=== PATIENT | male | born 1975 | race Hispanic/Latino ===

== ENCOUNTER 2018-11-14 06:33 | Day surgery (SDC) | payer OTHER ==
[2018-11-13 14:49] VITALS: BP 137/72
[2018-11-13 14:49] LABS: BASOPHILS % (AUTO) 0.9 % (0.0-5.0); EOSINOPHILS % (AUTO) 0.4 % (0.0-8.0); HEMATOCRIT 43.1 % (42-54); LYMPHOCYTES % (AUTO) 17.1 % (21.0-51.0); MEAN CORPUSCULAR HEMOGLOBIN 28.2 pg (27.0-33.0); MEAN CORPUSCULAR HGB CONC 33.5 g/dL (32.0-36.0); MEAN CORPUSCULAR VOLUME 84.1 fL (79-99); MONOCYTES % (AUTO) 7.5 % (3.0-13.0); NEUTROPHILS % (AUTO) 74.1 % (40.0-77.0); PLATELET COUNT (AUTO) 295 K/uL (130-400); RED BLOOD CELL COUNT(AUTO) 5.12 MIL/uL (4.50-6.20); RED CELL DISTRIBUTION WIDTH 13.9 % (11.0-15.5); WHITE BLOOD COUNT (AUTO) 12.2 K/uL (4.8-10.8)
[2018-11-13 15:05] LABS: CREATININE 0.9 mg/dL (0.5-1.5); POTASSIUM 3.8 mmol/L (3.5-5.1)
[~2018-11-14] VITALS: Ht 170.2 cm; Wt 131.6 kg
[2018-11-14] VITALS (13 sets, daily range): BP systolic 119–145; BP diastolic 59–81
[~2018-11-14 06:33] MED LIST: CEFAZOLIN 3GM /D5W 100ML 100 ML IV SCH; LISI-617 PO; METF-446 PO
[2018-11-14] MEDS ORDERED: SODIUM CHLORIDE 0.9% 1000ML 1,000 ML IV ONE (07:22)
[2018-11-14] MEDS: CEFAZOLIN SODIUM 1 GM VIAL ONE ×2 (07:24→08:40)
[2018-11-14] MEDS ORDERED: LIDOCAINE PF 2% 5ML ABBOJECT ONE (07:33)
[2018-11-14] MEDS ORDERED: GLYCOPYRROLATE 1 MG/5 ML SYRINGE ONE (07:33)
[2018-11-14] MEDS ORDERED: ONDANSETRON HCL 4 MG/2 ML VIAL ONE ×2 (07:33→10:31)
[2018-11-14] MEDS ORDERED: PROPOFOL 10 MG/ML 20ML VIAL IV ONE (07:33)
[2018-11-14] MEDS ORDERED: DEXAMETHASONE SOD PHOSPHATE 10MG/ML 1ML VIAL ONE (07:33)
[2018-11-14] MEDS ORDERED: SUCCINYLCHOLINE 200MG/10ML SYR ONE (07:33)
[2018-11-14] MEDS ORDERED: MIDAZOLAM HCL 1 MG/ML 2ML VIAL ONE (07:34)
[2018-11-14] MEDS ORDERED: FENTANYL CITRATE PF 50 MCG/1 ML 2ML VIAL ONE (07:34)
[2018-11-14] MEDS ORDERED: NEOSTIGMINE 5MG/5ML SYR IV ONE (07:34)
[2018-11-14] MEDS ORDERED: ROCURONIUM 10MG/1ML SYR 10 MG/ML ML ONE (07:34)
[2018-11-14] MEDS ORDERED: SODIUM CHLORIDE 0.9% 10 ML VIAL ONE (08:54)
[2018-11-14] MEDS ORDERED: PHENYLEPHRINE HCL 10 MG/ML 1ML VIAL IV ONE (08:54)
[2018-11-14] MEDS ORDERED: MEPERIDINE-PF 25 MG/ML SYG ONE ×2 (09:43→09:53)
[2018-11-14] MEDS ORDERED: PROMETHAZINE HCL 25 MG/ML 1ML AMPULE IM ONE (09:56)
[2018-11-14] MEDS ORDERED: NAPR375T6 PO (09:56)
[2018-11-14] MEDS ORDERED: CEPH500B PO (09:56)
[2018-11-14] MEDS ORDERED: TYL3 PO (09:56)
[2018-11-14] MEDS ORDERED: KETOROLAC TROMETHAMINE 30MG/ML ONE (10:10)
== END 2018-11-14 11:20 | disposition home or self-care (01) ==
LOC: DAH 06:33
PROVIDERS: ATTEND Orthopaedic Surgery
DX: M23.222 Derangement of posterior horn of medial meniscus due to old tear or injury, left knee (principal); Z68.44 Body mass index [BMI] 60.0-69.9, adult; I10 Essential (primary) hypertension; E11.9 Type 2 diabetes mellitus without complications; E66.9 Obesity, unspecified; Z98.890 Other specified postprocedural states; Z79.899 Other long term (current) drug therapy; Z79.84 Long term (current) use of oral hypoglycemic drugs
CPT/HCPCS: 29881; 36415; 80048; 82948 ×2; 85025; A4606; A4649 ×2; A4930 ×2; A6223; J0330; J0690; J1100; J1885; J2001; J2175 ×2; J2250; J2370; J2405 ×2; J2550; J2704; J2710; J3010; J3490; J7030; J7120